=== PATIENT | male | born 1995 | race Caucasian/White ===

== ENCOUNTER 2019-05-24 20:43 | Emergency (ER) | payer OTHER ==
[~2019-05-24] VITALS: Ht 177.8 cm; Wt 82.1 kg
[2019-05-24 20:54] VITALS: Ht 177.8 cm; Wt 82.1 kg
[2019-05-24 21:52] LABS: BASOPHIL % 0.5 % (0-2); PLATELET COUNT 168 x10^3mcL (130-400); RED CELL DISTRIBUTION WIDTH 13.4 % (11.5-14.5)
[2019-05-24 21:56] LABS: CARBON DIOXIDE 29.7 mmol/L (21-32); CHLORIDE SERUM 105 mmol/L (98-107); CREATININE SERUM 0.7 mg/dL (0.7-1.3); GFR1 > 60 mL/min; GLUCOSE SERUM 96 mg/dL (74-106); SODIUM SERUM 141 mmol/L (136-145)
[2019-05-24 22:01] LABS: ALKALINE PHOSPHATASE 90 U/L (46-116); ALT/SGPT 27 U/L (16-63); AST/SGOT 14 U/L (15-37); BILIRUBIN TOTAL 0.3 mg/dL (0.20-1.00); TOTAL PROTEIN, SERUM 7.8 g/dL (6.4-8.2)
[2019-05-24 22:38] LABS: ERYTHROCYTE SED RATE 15 mm/hr (0-15)
[2019-05-25 01:58] VITALS: BP 135/71
== END 2019-05-25 01:58 | disposition home or self-care (01) ==
LOC: ED 20:43
PROVIDERS: Emergency Medicine
DX: R07.89 Other chest pain (principal); K21.9 Gastro-esophageal reflux disease without esophagitis
CPT/HCPCS: 83880; C9113; J1885; Q0092

== ENCOUNTER 2019-10-15 20:09 | Emergency (ER) | payer OTHER ==
[~2019-10-15] VITALS: Ht 177.8 cm; Wt 81.2 kg
[2019-10-15 20:26] VITALS: Ht 177.8 cm; Wt 81.2 kg
[2019-10-15 21:33] VITALS: BP 122/71
== END 2019-10-15 21:33 | disposition home or self-care (01) ==
LOC: ED 20:09
DX: S05.02XA Injury of conjunctiva and corneal abrasion without foreign body, left eye, initial encounter (principal); S05.01XA Injury of conjunctiva and corneal abrasion without foreign body, right eye, initial encounter; X58.XXXA Exposure to other specified factors, initial encounter; Y93.89 Activity, other specified; Y92.89 Other specified places as the place of occurrence of the external cause; Y99.8 Other external cause status

== ENCOUNTER 2020-01-09 00:04 | Emergency (ER) | payer OTHER ==
[~2020-01-09] VITALS: Ht 177.8 cm; Wt 84.1 kg
[2020-01-09 00:17] VITALS: Ht 177.8 cm; Wt 84.1 kg
[2020-01-09 05:28] VITALS: BP 131/91
== END 2020-01-09 05:30 | disposition home or self-care (01) ==
LOC: ED 00:04
DX: H92.01 Otalgia, right ear (principal)